=== PATIENT | male | born 1995 | race Caucasian/White ===

== ENCOUNTER 2018-09-02 07:28 | Emergency (ER) | payer SELFPAY ==
--- NOTE | 2018-09-02 07:43 | RAD ---
Exam: Chest 2 views HISTORY:Dyspnea Comparison: None FINDINGS: Lungs: No masses or consolidation. Cardiac silhouette: Normal size Pulmonary vessels: Normal Pleural Spaces: Clear Pneumothorax: None Osseous abnormalities: None of acuity. IMPRESSION: No focal consolidation.
== END 2018-09-02 08:45 | disposition home or self-care (01) ==
LOC: ERS 07:28
DX: J20.9 Acute bronchitis, unspecified (principal); I10 Essential (primary) hypertension; Z79.899 Other long term (current) drug therapy
CPT/HCPCS: 71046

== ENCOUNTER 2018-10-15 15:04 | Emergency (ER) | payer SELFPAY ==
[~2018-10-15 15:04] MED LIST: ISOVUE-370 76%-LOCM 1 ML ONE
[2018-10-15] MEDS ORDERED: Ondansetron ODT 4 MG TAB ONE (15:44)
[2018-10-15 16:11] LABS: #Eosinphils 0.2 thou/uL (0.0-0.7); #Lymphocytes 2.9 thou/uL (1.20-3.40); #Monocytes 1.2 thou/uL (0.11-0.59); #Neutrophils 9.4 thou/uL (1.40-6.50); %Basophils 0.3 % (0.0-1.0); %Eosinophils 1.5 % (0.0-10.0); %Lymphocytes 20.9 % (21.0-51.0); %Monocytes 8.5 % (0.0-10.0); %Neutrophils 68.8 % (42.0-75.0); Mean Corpuscular HGB CONC 34.5 g/dL (32.0-36.0); Mean Corpuscular Volume 89.9 fL (78.0-98.0); Mean Platelet Volume 7.3 fL (7.4-10.4); Platelet Count 283 thou/uL (130-400); RBC Distribution Width 11.6 % (11.5-14.5); Red Blood Cell (RBC) Count 5.47 mill/uL (4.70-6.10); White Blood Cell (WBC) Count 13.7 thou/uL (4.8-10.8)
[2018-10-15 16:23] LABS: Bilirubin Negative (Negative); Blood, Urine Negative (Negative); Glucose, Urine (Dipstick) 100 mg/dL (Negative); Leukocyte Negative (Negative); Nitrite Negative (Negative); Protein, Urine (Dipstick) Trace mg/dL (Neg-Trace); Urobilinogen 0.2 mg/dL (Less than 2)
[2018-10-15 16:24] LABS: Clarity Clear (Clear)
[2018-10-15 16:31] LABS: ALT (SGPT) 190 U/L (8-55); AST (SGOT) 98 U/L (5-34); Albumin 4.5 g/dL (3.5-5.0); Alkaline Phosphatase 88 U/L (40-150); Anion Gap 14 mmol/L (10-20); BUN (Urea Nitrogen) 11 mg/dL (8.9-20.6); Bilirubin, Total 0.7 mg/dL (0.2-1.2); Calc. Creatinine Clearance 0 mL/min (70-130); Carbon Dioxide 25 mmol/L (22-29); Chloride 100 mmol/L (98-107); Estimated GFR-MDRD Greater than 90; Globulin 3.5 g/dL (2.4-3.5); Glucose 252 mg/dL (70-105); Lipase 20 U/L (8-78); Potassium 4.1 mmol/L (3.5-5.1); Sodium 135 mmol/L (136-145)
--- NOTE | 2018-10-15 18:38 | CT ---
CT Abdomen Pelvis W Con: 10/15/2018 5:16 PM CLINICAL INFORMATION: Left-sided abdominal pain with nausea and vomiting COMPARISON: None. TECHNIQUE: Multiple contiguous axial images were obtained and a CT of the abdomen and pelvis with IV contrast. C oronal reformats were performed. FINDINGS: Lower Chest: within normal limits. Abdomen: Liver: Diffuse fatty infiltration without focal lesions. Bile Ducts: Normal caliber. Gallbladder: No calcified gallstones. Normal caliber wall. Pancreas: within normal limits. Spleen: within normal limits. Adrenals: within normal limits. Kidneys: Scarring is seen in the lower pole of the left kidney. Pelvis: Reproductive Organs: No pelvic masses. Ureters: within normal limits. Bladder: within normal limits. Peritoneum: No ascites or free air, no fluid collection. Bowel: Normal caliber. Mesentery and Retroperitoneum: No enlarged mesenteric or retroperitoneal lymph nodes. Vessels: Normal. Abdominal Wall: within normal limits. Bones: Within normal limits IMPRESSION: Fatty liver
== END 2018-10-15 19:37 | disposition home or self-care (01) ==
LOC: ERS 15:04
DX: R11.2 Nausea with vomiting, unspecified (principal); R19.7 Diarrhea, unspecified; K76.0 Fatty (change of) liver, not elsewhere classified; E78.5 Hyperlipidemia, unspecified; I10 Essential (primary) hypertension; Z79.899 Other long term (current) drug therapy
CPT/HCPCS: 36415; 74177; 80053; 81003; 83690; 85025; 96372; J0500; Q0162; Q9966

== ENCOUNTER 2019-07-16 11:58 | Emergency (ER) | payer SELFPAY ==
--- NOTE | 2019-07-16 13:24 | CT ---
CT FACE WITHOUT CONTRAST: Date: 07/16/2019 HISTORY: Jaw pain. COMPARISON: None. FINDINGS: Normal location of the temporomandibular joints. The lateral orbital hooper, medial orbital hooper, orb ital floors, and orbital roofs are all intact without fracture. The nasal bones are intact. Upper cer vical spine alignment is normal. Small mucosal retention cyst in the sphenoid sinus. Globes are intact. No retrobulbar hematoma. Mild left cheek and perimandibular soft tissue swelling. IMPRESSION: Left cheek and perimandibular soft tissue swelling without acute fracture. POS: [facility]
== END 2019-07-16 14:10 | disposition home or self-care (01) ==
LOC: ERS 11:58
DX: S00.83XA Contusion of other part of head, initial encounter (principal); E78.5 Hyperlipidemia, unspecified; E78.00 Pure hypercholesterolemia, unspecified; I10 Essential (primary) hypertension; W22.8XXA Striking against or struck by other objects, initial encounter
CPT/HCPCS: 70486

== ENCOUNTER 2019-07-17 16:20 | Emergency (ER) | payer SELFPAY ==
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
== END 2019-07-17 17:32 | disposition home or self-care (01) ==
LOC: ERS 16:20
DX: S00.83XA Contusion of other part of head, initial encounter (principal); E78.5 Hyperlipidemia, unspecified; E78.00 Pure hypercholesterolemia, unspecified; I10 Essential (primary) hypertension; Z79.899 Other long term (current) drug therapy; W22.8XXA Striking against or struck by other objects, initial encounter
CPT/HCPCS: 76999

== ENCOUNTER 2020-03-28 17:59 | Emergency (ER) | payer SELFPAY ==
[2020-03-28] MEDS ORDERED: Lidocaine 1% w/Epinephrine 1:100K 20 ML VIAL ONE (18:21)
[2020-03-28] MEDS ORDERED: Morphine 4 MG/ML VIAL ONE (18:25)
[2020-03-28] MEDS ORDERED: Sulfameth/Trimethoprim DS 800-160mg TAB ONE (18:25)
--- NOTE | 2020-04-03 10:49 | EKG ---
Test Reason : SEPSIS Blood Pressure : / mmHG Vent. Rate : 101 BPM Atrial Rate : 101 BPM P-R Int : 136 ms QRS Dur : 090 ms QT Int : 328 ms P-R-T Axes : 035 025 076 degrees QTc Int : 425 ms Sinus tachycardia Nonspecific T wave abnormality Left ventricular hypertrophy Abnormal ECG Confirmed by MAVERICK NOWAK, BAILEE Recinos ([id number]), editor dictionary NAMITA DELGADO ([id number]) on 04/03/2020 10:48:32 AM Referred By: MAVERICK Confirmed By:BAILEE TEMPLE MD
== END 2020-03-28 19:54 | disposition home or self-care (01) ==
LOC: ERS 17:59
DX: L02.212 Cutaneous abscess of back [any part, except buttock and flank] (principal); E78.5 Hyperlipidemia, unspecified; E78.00 Pure hypercholesterolemia, unspecified; Z79.899 Other long term (current) drug therapy
CPT/HCPCS: 10060; 93005; 96374; J2270

== ENCOUNTER 2020-03-29 15:08 | Emergency (ER) | payer SELFPAY | END 2020-03-29 16:46 | disposition home or self-care (01) | LOC: ERS 15:08 | DX: L03.312 Cellulitis of back [any part except buttock and flank] (principal); I10 Essential (primary) hypertension; E78.5 Hyperlipidemia, unspecified; E78.00 Pure hypercholesterolemia, unspecified; Z79.899 Other long term (current) drug therapy | CPT/HCPCS: 99282 ==

== ENCOUNTER 2020-05-05 13:04 | Emergency (ER) | payer SELFPAY | END 2020-05-05 13:51 | disposition home or self-care (01) | LOC: ERS 13:04 | DX: R11.2 Nausea with vomiting, unspecified (principal); L98.9 Disorder of the skin and subcutaneous tissue, unspecified; E78.5 Hyperlipidemia, unspecified; E78.00 Pure hypercholesterolemia, unspecified; I10 Essential (primary) hypertension | CPT/HCPCS: 99281 ==

== ENCOUNTER 2020-08-16 08:18 | Emergency (ER) | payer SELFPAY | END 2020-08-16 09:21 | disposition home or self-care (01) | LOC: ERS 08:18 | DX: J06.9 Acute upper respiratory infection, unspecified (principal); E11.9 Type 2 diabetes mellitus without complications; E78.5 Hyperlipidemia, unspecified; E78.00 Pure hypercholesterolemia, unspecified; Z79.84 Long term (current) use of oral hypoglycemic drugs | CPT/HCPCS: 71045 ==

== ENCOUNTER 2021-05-17 11:38 | Emergency (ER) | payer SELFPAY | END 2021-05-17 15:02 | disposition home or self-care (01) | LOC: ERS 11:38 | DX: U07.1 COVID-19 (principal); I10 Essential (primary) hypertension; E11.9 Type 2 diabetes mellitus without complications; E78.5 Hyperlipidemia, unspecified; Z79.84 Long term (current) use of oral hypoglycemic drugs; Z79.899 Other long term (current) drug therapy | CPT/HCPCS: 36415; 71045; 85379; 93005 ==

== ENCOUNTER 2021-09-01 17:30 | Emergency (ER) | payer BC, SELFPAY | END 2021-09-01 18:11 | disposition home or self-care (01) | LOC: ERS 17:30 | DX: G56.32 Lesion of radial nerve, left upper limb (principal); M79.602 Pain in left arm; I10 Essential (primary) hypertension; E11.9 Type 2 diabetes mellitus without complications; E78.5 Hyperlipidemia, unspecified; E78.00 Pure hypercholesterolemia, unspecified | CPT/HCPCS: 93005 ==

== ENCOUNTER 2021-09-22 19:25 | Emergency (ER) | payer BC ==
[2021-09-22 20:40] LABS: #Basophils 0.1 thou/uL (0.0-0.2); #Eosinphils 0.1 thou/uL (0.0-0.7); #Lymphocytes 3.7 thou/uL (1.20-3.40); #Monocytes 0.8 thou/uL (0.11-0.59); #Neutrophils 4.6 thou/uL (1.40-6.50); %Basophils 0.6 % (0.0-1.0); %Eosinophils 0.6 % (0.0-10.0); %Lymphocytes 39.9 % (21.0-51.0); %Monocytes 9.1 % (0.0-10.0); %Neutrophils 49.8 % (42.0-75.0); Hemoglobin 16.5 g/dL (14.0-18.0); Mean Corpuscular HGB CONC 34.8 g/dL (32.0-36.0); Mean Corpuscular Hemoglobin 31.6 pg (27.0-31.0); Mean Corpuscular Volume 90.9 fL (78.0-98.0); Mean Platelet Volume 7.4 fL (7.4-10.4); Platelet Count 250 thou/uL (130-400); RBC Distribution Width 11.4 % (11.5-14.5); Red Blood Cell (RBC) Count 5.22 mill/uL (4.70-6.10); White Blood Cell (WBC) Count 9.2 thou/uL (4.8-10.8)
[2021-09-22 21:05] LABS: ALT (SGPT) 46 U/L (8-55); AST (SGOT) 22 U/L (5-34); Albumin 4.2 g/dL (3.5-5.0); Alkaline Phosphatase 80 U/L (40-110); Anion Gap 16 mmol/L (10-20); BUN (Urea Nitrogen) 8 mg/dL (8.9-20.6); Bilirubin, Total 0.5 mg/dL (0.2-1.2); Calc. Creatinine Clearance 0 mL/min (70-130); Calcium 9.4 mg/dL (7.8-10.44); Carbon Dioxide 26 mmol/L (22-29); Chloride 100 mmol/L (98-107); Globulin 3.6 g/dL (2.4-3.5); Glucose 356 mg/dL (70-105); Potassium 4.2 mmol/L (3.5-5.1); Protein, Total 7.8 g/dL (6.0-8.3); Sodium 138 mmol/L (136-145)
== END 2021-09-22 22:53 | disposition home or self-care (01) ==
LOC: ERS 19:25
DX: R20.2 Paresthesia of skin (principal); I10 Essential (primary) hypertension; E11.9 Type 2 diabetes mellitus without complications; E78.5 Hyperlipidemia, unspecified; Z79.899 Other long term (current) drug therapy
CPT/HCPCS: 36415; 71045; 80053; 85025; 93005

== ENCOUNTER 2021-11-01 05:34 | Emergency (ER) | payer BC, SELFPAY ==
[2021-11-01] MEDS ORDERED: Ondansetron PF 4 MG/2 ML Vial ONE (06:16)
[2021-11-01 06:22] LABS: #Basophils 0.1 thou/uL (0.0-0.2); #Eosinphils 0.1 thou/uL (0.0-0.7); #Lymphocytes 1.7 thou/uL (1.20-3.40); #Monocytes 1.1 thou/uL (0.11-0.59); #Neutrophils 15.5 thou/uL (1.40-6.50); %Basophils 0.4 % (0.0-1.0); %Eosinophils 0.7 % (0.0-10.0); %Lymphocytes 9.1 % (21.0-51.0); %Monocytes 5.7 % (0.0-10.0); %Neutrophils 84.1 % (42.0-75.0); Hemoglobin 18.8 g/dL (14.0-18.0); Mean Corpuscular HGB CONC 34.2 g/dL (32.0-36.0); Mean Corpuscular Hemoglobin 31.4 pg (27.0-31.0); Mean Corpuscular Volume 91.7 fL (78.0-98.0); Mean Platelet Volume 7.6 fL (7.4-10.4); Platelet Count 263 thou/uL (130-400); RBC Distribution Width 11.6 % (11.5-14.5); Red Blood Cell (RBC) Count 5.99 mill/uL (4.70-6.10); White Blood Cell (WBC) Count 18.5 thou/uL (4.8-10.8)
[2021-11-01 06:48] LABS: ALT (SGPT) 69 U/L (8-55); AST (SGOT) 26 U/L (5-34); Albumin 5.1 g/dL (3.5-5.0); Alkaline Phosphatase 81 U/L (40-110); Anion Gap 20 mmol/L (10-20); BUN (Urea Nitrogen) 12 mg/dL (8.9-20.6); Bilirubin, Total 0.7 mg/dL (0.2-1.2); Calc. Creatinine Clearance 0 mL/min (70-130); Calcium 10.7 mg/dL (7.8-10.44); Carbon Dioxide 23 mmol/L (22-29); Chloride 100 mmol/L (98-107); Estimated GFR 98; Globulin 3.6 g/dL (2.4-3.5); Glucose 287 mg/dL (70-105); Lipase 22 U/L (8-78); Potassium 4.6 mmol/L (3.5-5.1); Protein, Total 8.7 g/dL (6.0-8.3); Sodium 138 mmol/L (136-145)
== END 2021-11-01 07:17 | disposition home or self-care (01) ==
LOC: ERS 05:34
DX: R19.7 Diarrhea, unspecified (principal); R11.2 Nausea with vomiting, unspecified; I10 Essential (primary) hypertension; E11.9 Type 2 diabetes mellitus without complications; E78.5 Hyperlipidemia, unspecified; Z79.899 Other long term (current) drug therapy
CPT/HCPCS: 80053; 82010; 83690; 85025; 93005; J2405

== ENCOUNTER 2021-11-04 01:46 | Emergency (ER) | payer SELFPAY ==
[2021-11-04] MEDS ORDERED: Ondansetron PF 4 MG/2 ML Vial ONE (02:20)
[2021-11-04] MEDS ORDERED: Dicyclomine 20 MG/2 ML VIAL ONE (02:20)
[2021-11-04 02:32] LABS: #Eosinphils 0.5 thou/uL (0.0-0.7); #Lymphocytes 3.2 thou/uL (1.20-3.40); #Monocytes 1.2 thou/uL (0.11-0.59); #Neutrophils 7.3 thou/uL (1.40-6.50); %Basophils 0.4 % (0.0-1.0); %Eosinophils 4.2 % (0.0-10.0); %Lymphocytes 26.1 % (21.0-51.0); %Monocytes 9.5 % (0.0-10.0); %Neutrophils 59.8 % (42.0-75.0); Hemoglobin 17.9 g/dL (14.0-18.0); Mean Corpuscular HGB CONC 34.8 g/dL (32.0-36.0); Mean Corpuscular Hemoglobin 32.1 pg (27.0-31.0); Mean Corpuscular Volume 92.3 fL (78.0-98.0); Mean Platelet Volume 7.5 fL (7.4-10.4); Platelet Count 271 thou/uL (130-400); RBC Distribution Width 11.6 % (11.5-14.5); Red Blood Cell (RBC) Count 5.58 mill/uL (4.70-6.10); White Blood Cell (WBC) Count 12.2 thou/uL (4.8-10.8)
[2021-11-04 02:57] LABS: ALT (SGPT) 45 U/L (8-55); AST (SGOT) 19 U/L (5-34); Albumin 4.5 g/dL (3.5-5.0); Alkaline Phosphatase 75 U/L (40-110); Anion Gap 20 mmol/L (10-20); BUN (Urea Nitrogen) 12 mg/dL (8.9-20.6); Bilirubin, Total 0.7 mg/dL (0.2-1.2); CK (CPK) 35 U/L (30-200); Calc. Creatinine Clearance 0 mL/min (70-130); Calcium 9.7 mg/dL (7.8-10.44); Carbon Dioxide 20 mmol/L (22-29); Chloride 99 mmol/L (98-107); Estimated GFR 122; Globulin 3.5 g/dL (2.4-3.5); Glucose 250 mg/dL (70-105); Lipase 17 U/L (8-78); Magnesium 1.5 mg/dL (1.6-2.6); Potassium 3.7 mmol/L (3.5-5.1); Sodium 135 mmol/L (136-145)
== END 2021-11-04 04:28 | disposition home or self-care (01) ==
LOC: ERS 01:46
DX: R11.2 Nausea with vomiting, unspecified (principal); R19.7 Diarrhea, unspecified; I10 Essential (primary) hypertension; E11.9 Type 2 diabetes mellitus without complications; E78.5 Hyperlipidemia, unspecified; E78.00 Pure hypercholesterolemia, unspecified; Z79.84 Long term (current) use of oral hypoglycemic drugs; Z79.899 Other long term (current) drug therapy
CPT/HCPCS: 36415; 80053; 82010; 82550; 83690; 83735; 85025; 96372; 96374; J2405

== ENCOUNTER 2022-08-15 13:03 | Emergency (ER) | payer BC, SELFPAY ==
[~2022-08-15 13:03] MED LIST changes: -ISOVUE-370 76%-LOCM 1 ML ONE; +Iopamidol 370 76% 100 ML VIAL ONE
[2022-08-15 15:16] LABS: Bilirubin Negative (Negative); Blood, Urine Negative (Negative); Clarity Clear (Clear); Glucose, Urine (Dipstick) Normal (Negative); Ketone, Urine Negative (Negative); Leukocyte Negative Leu/uL (Negative); Nitrite Negative (Negative); Protein, Urine (Dipstick) Negative (Neg-Trace); Specific Gravity, Urine 1.021 (1.002-1.036); pH, Urine 6.5 (5.0-9.0)
[2022-08-15 15:18] LABS: Actual Bicarbonate (HCO3v) 26.6 mEq/L (22-28); Base Excess 0.8 mEq/L (-2.0 to +3.0); Calcium, Ionized (venous) 1.13 mmol/L (1.16-1.32); Chloride (VBG) 101 mmol/L (98-106); Hematocrit-VBG 51 % (42.0-52.0); Hemoglobin (Hb) 17.4 g/dL (13.2-17.3); Potassium (VBG) 4.41 mmol/L (3.70-5.30); Sodium 138.8 mmol/L (133-146); pH (venous) 7.376 (7.32-7.43)
[2022-08-15 15:20] LABS: #Basophils 0.1 thou/uL (0.0-0.2); #Eosinphils 0.1 thou/uL (0.0-0.7); #Lymphocytes 3.5 thou/uL (1.20-3.40); #Monocytes 0.8 thou/uL (0.11-0.59); #Neutrophils 5.8 thou/uL (1.40-6.50); %Basophils 0.9 % (0.0-1.0); %Eosinophils 0.6 % (0.0-10.0); %Lymphocytes 34.5 % (21.0-51.0); %Monocytes 7.5 % (0.0-10.0); %Neutrophils 56.5 % (42.0-75.0); Mean Corpuscular HGB CONC 35.3 g/dL (32.0-36.0); Mean Corpuscular Volume 90.8 fl (78.0-98.0); Mean Platelet Volume 7.7 fL (7.4-10.4); Platelet Count 243 10x3/uL (130-400); RBC Distribution Width 11.5 % (11.5-14.5); White Blood Cell (WBC) Count 10.2 10x3/uL (4.8-10.8)
[2022-08-15] MEDS ORDERED: Ondansetron PF 4 MG/2 ML Vial ONE (15:31)
[2022-08-15] MEDS ORDERED: Ketorolac Tromethamine 30 MG/ML VIAL ONE (15:31)
[2022-08-15 15:57] LABS: Albumin 4.4 g/dL (3.5-5.0)
[2022-08-15 15:58] LABS: Chloride 103 mmol/L (98-107); Potassium 4.6 mmol/L (3.5-5.1); Sodium 139 mmol/L (136-145)
[2022-08-15 15:59] LABS: Calcium 9.8 mg/dL (7.8-10.44); Globulin 3.1 g/dL (2.4-3.5); Glucose 166 mg/dL (70-105)
[2022-08-15 16:00] LABS: Protein, Total 7.5 g/dL (6.0-8.3)
[2022-08-15 16:01] LABS: Anion Gap 17 mmol/L (10-20); Bilirubin, Total 0.3 mg/dL (0.2-1.2); Carbon Dioxide 24 mmol/L (22-29)
[2022-08-15 16:02] LABS: Alkaline Phosphatase 71 U/L (40-110); Calc. Creatinine Clearance 0 mL/min (70-130); Estimated GFR 119
[2022-08-15 16:03] LABS: BUN (Urea Nitrogen) 14 mg/dL (8.9-20.6)
[2022-08-15 16:04] LABS: AST (SGOT) 23 U/L (5-34)
[2022-08-15 16:05] LABS: ALT (SGPT) 43 U/L (8-55); Lipase 68 U/L (8-78)
== END 2022-08-15 16:48 | disposition home or self-care (01) ==
LOC: ERS 13:03
DX: R10.32 Left lower quadrant pain (principal); R11.0 Nausea; I10 Essential (primary) hypertension; E11.9 Type 2 diabetes mellitus without complications; E78.00 Pure hypercholesterolemia, unspecified; Z79.84 Long term (current) use of oral hypoglycemic drugs; Z79.899 Other long term (current) drug therapy
CPT/HCPCS: 36415; 74177; 80053; 81003; 82805; 83605; 83690; 85025; 93005; 96374; 96375; J1885; J2405; Q9967